=== PATIENT | male | born 1945 | race Caucasian/White ===

== ENCOUNTER 2023-03-11 12:41 | Outpatient (REF) | payer MEDICARE, SELFPAY ==
[2023-03-11 12:55] LABS: MANUAL DIFF FLAG NO
[2023-03-11 13:04] LABS: Basophils Absolute Auto 0.1 X10*3/uL (0.0-0.2); Basophils Percent Auto 1.1 % (0-2); Eosinophils Absolute Auto 0.2 X10*3/uL (0.0-0.4); Eosinophils Percent Auto 2.6 % (0-4); Hematocrit 47.5 % (42.0-52.0); Hemoglobin 15.5 g/dl (14.0-18.0); Imm Gran Abs Auto 0.02 X10*3/uL (0.00-0.03); Imm Gran Pct Auto 0.3 % (0.0-0.4); Lymphocytes Absolute Auto 1.5 X10*3/uL (1.2-4.9); Lymphocytes Percent Auto 24.1 % (20-40); Mean Corpuscular HGB Conc 32.6 g/dl (31.0-36.0); Mean Corpuscular Hemoglobin 31.2 pg (27.0-33.0); Mean Corpuscular Volume 95.6 fL (80.0-98.0); Mean Platelet Volume 10.2 fL (9.4-12.4); Monocytes Absolute Auto 0.7 X10*3/uL (0.1-1.2); Monocytes Percent Auto 11.2 % (2-11); Neutrophils Absolute Auto 3.8 x10*3/uL (2.0-8.3); Neutrophils Percent Auto 60.7 % (45-73); Platelet Count 249 X10*3/uL (160-400); Red Blood Count 4.97 X10*6/uL (4.60-5.80); Red Cell Distribution Width 14.2 % (11.0-16.0); White Blood Count 6.3 X10*3/uL (4.8-10.8)
[2023-03-11 13:16] LABS: Alanine Aminotransferase 19 U/L (0-40); Albumin Level 4.1 g/dL (3.5-5.0); Alkaline Phosphatase 57 U/L (39-117); Anion Gap 16 (12-20); Aspartate Amino Transferase 22 U/L (5-37); Bilirubin Total 0.6 mg/dL (0.0-1.0); Blood Urea Nitrogen 17 mg/dL (9-16); Calcium 9.2 mg/dL (8.4-10.2); Carbon Dioxide 23 mmol/L (22-29); Chloride 110 mmol/L (96-108); Cholesterol 221 mg/dL; Estimated Glomerular Filt Rate > 60; Glucose Fasting 96 mg/dL (60-99); HDL Cholesterol 53 mg/dL; LDL Cholesterol Calculated 144 mg/dl; Potassium 4.4 mmol/L (3.3-5.1); Sodium 145 mmol/L (135-145); Total Protein 6.6 g/dL (6.5-8.0); Triglycerides 120 mg/dL
[2023-03-11 13:22] LABS: Appearance Urine Clear; Color Urine Yellow; Glucose Urine UA Negative (Negative); Leukocyte Esterase Urine Negative (Negative); Nitrite Urine Negative (Negative); PH 5.5 (5.0-9.0); Specific Gravity - Urine 1.015 (1.005-1.025); Urine Blood Negative (Negative); Urine Ketones Negative (Negative); Urine Protein Negative (Neg-Trace)
[2023-03-11 13:25] LABS: Bacteria Urine None Seen (None Seen); Hyaline Casts Urine 0-2 /LPF (0-2); RBC Urine 0-2 /HPF (0-2); Squamous Epithelial Cell Urine 0-2 /HPF (0-2); WBC Urine 0-5 /HPF (0-5)
[2023-03-11 13:47] LABS: PSA,Total (Free>4and<10) 4.18 ng/mL (0.00-4.00)
[2023-03-12 10:04] LABS: Percent Free Prostate Spec Ag 27 % (calc) (>25); Prostate Specific Ag Total 3.7 ng/mL (< OR = 4.0)
== END 2023-03-11 12:42 | disposition home or self-care (01) ==
LOC: HO.LNP 12:41
PROVIDERS: Visit Provider Internal Medicine
DX: Z12.5 Encounter for screening for malignant neoplasm of prostate (principal); C82.00 Follicular lymphoma grade I, unspecified site
CPT/HCPCS: 80053; 80061; 81001; 84153; 84154; 85025

== ENCOUNTER 2023-03-14 11:14 | Outpatient (REF) | payer MEDICARE, SELFPAY ==
[2023-03-14 12:48] LABS: PSA,Total (Free>4and<10) 4.41 ng/mL (0.00-4.00)
[2023-03-18 10:59] LABS: Free Prostate Spec Ag 1.4 ng/mL; Percent Free Prostate Spec Ag 26 % (calc) (>25); Prostate Specific Ag Total 5.4 ng/mL (< OR = 4.0)
== END 2023-03-14 11:15 | disposition home or self-care (01) ==
LOC: HO.LNP 11:14
PROVIDERS: Visit Provider Internal Medicine
DX: Z12.5 Encounter for screening for malignant neoplasm of prostate (principal); R97.20 Elevated prostate specific antigen [PSA]
CPT/HCPCS: 84153; 84154

== ENCOUNTER 2023-05-06 12:07 | Outpatient (REF) | payer MEDICARE, SELFPAY ==
[2023-05-06 13:33] LABS: PSA,Total (Free>4and<10) 4.39 ng/mL (0.00-4.00)
[2023-05-08 10:24] LABS: Free Prostate Spec Ag 1.1 ng/mL; Percent Free Prostate Spec Ag 28 % (calc) (>25)
== END 2023-05-06 12:08 | disposition home or self-care (01) ==
LOC: HO.LNP 12:07
PROVIDERS: Visit Provider Internal Medicine
DX: R97.20 Elevated prostate specific antigen [PSA] (principal); Z12.5 Encounter for screening for malignant neoplasm of prostate
CPT/HCPCS: 84153; 84154

== ENCOUNTER 2023-07-15 14:43 | Outpatient (REF) | payer MEDICARE, SELFPAY ==
--- NOTE | ~2023-07-15 | XR_ITS ---
EXAMINATION: XR FOOT, LEFT CLINICAL INFORMATION: Calculi arthritis COMPARISON: None available. TECHNIQUE: AP, lateral, and oblique views of the left foot. FINDINGS: No acute visible fracture or dislocation. Multi joint arthritic changes. Plantar calcaneal heel spur. Narrowing of the first interphalangeal joint. Mild spurring the dorsal midfoot. Joint spaces and alignment are otherwise maintained. Soft tissues are unremarkable. Atherosclerotic calcifications are noted. XR/XR foot LT min 3V IMPRESSION: 1. No acute visible fracture or dislocation. 2. Multi joint arthritic changes with a plantar calcaneal heel spur.
[2023-07-15 16:35] LABS: PSA,Total (Free>4and<10) 4.26 ng/mL (0.00-4.00)
[2023-07-15 16:59] LABS: Uric Acid 6.6 mg/dL (3.4-7.0)
[2023-07-17 06:03] LABS: Free Prostate Spec Ag 0.8 ng/mL; Percent Free Prostate Spec Ag 23 % (calc) (>25); Prostate Specific Ag Total 3.5 ng/mL (< OR = 4.0)
== END 2023-07-15 14:44 | disposition home or self-care (01) ==
LOC: HO.XRAY 14:43
PROVIDERS: PCP Internal Medicine; Visit Provider Internal Medicine
DX: Z12.5 Encounter for screening for malignant neoplasm of prostate (principal); M10.9 Gout, unspecified; R97.20 Elevated prostate specific antigen [PSA]
CPT/HCPCS: 36415; 73630; 84153; 84154; 84550

== ENCOUNTER 2023-12-20 11:03 | Outpatient (REF) | payer MEDICARE, SELFPAY ==
[2023-12-20 11:52] LABS: Uric Acid 6.6 mg/dL (3.4-7.0)
[2023-12-20 12:19] LABS: PSA,Total (Free>4and<10) 4.25 ng/mL (0.00-4.00)
[2023-12-23 11:24] LABS: Percent Free Prostate Spec Ag 24 % (calc) (>25); Prostate Specific Ag Total 4.1 ng/mL (< OR = 4.0)
== END 2023-12-20 11:04 | disposition home or self-care (01) ==
LOC: HO.LNP 11:03
PROVIDERS: Visit Provider Internal Medicine
DX: Z12.5 Encounter for screening for malignant neoplasm of prostate (principal); M10.9 Gout, unspecified; R97.20 Elevated prostate specific antigen [PSA]
CPT/HCPCS: 84153; 84154; 84550

== ENCOUNTER 2024-03-09 11:14 | Outpatient (REF) | payer MEDICARE, SELFPAY ==
[2024-03-09 11:17] LABS: MANUAL DIFF FLAG NO
[2024-03-09 11:44] LABS: Basophils Absolute Auto 0.1 X10*3/uL (0.0-0.2); Basophils Percent Auto 1.3 % (0-2); Eosinophils Absolute Auto 0.2 X10*3/uL (0.0-0.4); Eosinophils Percent Auto 3.2 % (0-4); Hematocrit 41.2 % (42.0-52.0); Hemoglobin 13.3 g/dl (14.0-18.0); Imm Gran Abs Auto 0.02 X10*3/uL (0.00-0.03); Imm Gran Pct Auto 0.4 % (0.0-0.4); Lymphocytes Absolute Auto 1.3 X10*3/uL (1.2-4.9); Lymphocytes Percent Auto 26.7 % (20-40); Mean Corpuscular HGB Conc 32.3 g/dl (31.0-36.0); Mean Corpuscular Hemoglobin 30.6 pg (27.0-33.0); Mean Corpuscular Volume 94.9 fL (80.0-98.0); Mean Platelet Volume 10.4 fL (9.4-12.4); Monocytes Absolute Auto 0.7 X10*3/uL (0.1-1.2); Monocytes Percent Auto 14.1 % (2-11); Neutrophils Absolute Auto 2.6 x10*3/uL (2.0-8.3); Neutrophils Percent Auto 54.3 % (45-73); Platelet Count 178 X10*3/uL (160-400); Red Blood Count 4.34 X10*6/uL (4.60-5.80); Red Cell Distribution Width 14.6 % (11.0-16.0); White Blood Count 4.7 X10*3/uL (4.8-10.8)
[2024-03-09 12:19] LABS: Alanine Aminotransferase 15 U/L (0-40); Albumin Level 3.9 g/dL (3.5-5.0); Alkaline Phosphatase 72 U/L (39-117); Anion Gap 12 (12-20); Aspartate Amino Transferase 21 U/L (5-37); Bilirubin Total 0.4 mg/dL (0.0-1.0); Blood Urea Nitrogen 18 mg/dL (9-16); Carbon Dioxide 25 mmol/L (22-29); Chloride 108 mmol/L (96-108); Cholesterol 215 mg/dL (<200); Estimated Glomerular Filt Rate > 60; Glucose Fasting 98 mg/dL (60-99); HDL Cholesterol 55 mg/dL (>40); LDL Cholesterol Calculated 141 mg/dL (<100); Potassium 4.7 mmol/L (3.3-5.1); Sodium 140 mmol/L (135-145); Total Protein 6.3 g/dL (6.5-8.0); Triglycerides 99 mg/dL (<150)
[2024-03-09 12:21] LABS: PSA,Total (Free>4and<10) 4.99 ng/mL (0.00-4.00)
[2024-03-10 13:34] LABS: Free Prostate Spec Ag 1.2 ng/mL; Percent Free Prostate Spec Ag 26 % (calc) (>25); Prostate Specific Ag Total 4.7 ng/mL (< OR = 4.0)
== END 2024-03-09 11:15 | disposition home or self-care (01) ==
LOC: HO.LNP 11:14
PROVIDERS: Visit Provider Internal Medicine
DX: Z00.00 Encounter for general adult medical examination without abnormal findings (principal); C82.02 Follicular lymphoma grade I, intrathoracic lymph nodes; M10.9 Gout, unspecified; Z12.5 Encounter for screening for malignant neoplasm of prostate
CPT/HCPCS: 80053; 80061; 84153; 84154; 85025

== ENCOUNTER 2024-04-02 10:47 | Outpatient (REF) | payer MEDICARE, SELFPAY ==
[2024-04-02 11:10] LABS: Appearance Urine Clear; Color Urine Yellow; Glucose Urine UA Negative (Negative); Leukocyte Esterase Urine Negative (Negative); Nitrite Urine Negative (Negative); PH 6.5 (5.0-9.0); Urine Blood Negative (Negative); Urine Ketones Negative (Negative); Urine Protein Negative (Neg-Trace)
[2024-04-02 11:17] LABS: Bacteria Urine None Seen (None Seen); Hyaline Casts Urine 0-2 /LPF (0-2); RBC Urine 0-2 /HPF (0-2); Squamous Epithelial Cell Urine 0-2 /HPF (0-2); WBC Urine 0-5 /HPF (0-5)
== END 2024-04-02 10:48 | disposition home or self-care (01) ==
LOC: HO.LNP 10:47
PROVIDERS: Visit Provider Internal Medicine
DX: Z00.00 Encounter for general adult medical examination without abnormal findings (principal); I48.0 Paroxysmal atrial fibrillation; C82.02 Follicular lymphoma grade I, intrathoracic lymph nodes
CPT/HCPCS: 81001

== ENCOUNTER 2024-04-30 08:30 | Outpatient (REF) | payer MEDICARE, SELFPAY | END 2024-04-30 08:31 | disposition home or self-care (01) | LOC: HO.SH 08:30 | PROVIDERS: PCP Internal Medicine; Visit Provider Internal Medicine | DX: Z13.89 Encounter for screening for other disorder (principal) ==

== ENCOUNTER 2024-05-12 12:02 | Outpatient (REF) | payer MEDICARE, SELFPAY ==
[2024-05-12 12:32] LABS: Alanine Aminotransferase 14 U/L (0-40); Albumin Level 4.1 g/dL (3.5-5.0); Alkaline Phosphatase 63 U/L (39-117); Anion Gap 13 (12-20); Aspartate Amino Transferase 19 U/L (5-37); Bilirubin Direct 0.2 mg/dL (0.0-0.5); Bilirubin Total 0.7 mg/dL (0.0-1.0); Blood Urea Nitrogen 20 mg/dL (9-16); Calcium 9.5 mg/dL (8.4-10.2); Carbon Dioxide 26 mmol/L (22-29); Chloride 108 mmol/L (96-108); Estimated Glomerular Filt Rate > 60; Glucose Random 97 mg/dL (60-115); Potassium 4.7 mmol/L (3.3-5.1); Sodium 142 mmol/L (135-145); Total Protein 6.6 g/dL (6.5-8.0)
[2024-05-12 12:48] LABS: TSH reflex Free T4 1.84 uIU/mL (0.32-4.0)
[2024-05-12 12:54] LABS: Vitamin B12 424 pg/mL (200-900)
== END 2024-05-12 12:03 | disposition home or self-care (01) ==
LOC: HO.LNP 12:02
PROVIDERS: Visit Provider Internal Medicine
DX: R41.3 Other amnesia (principal)
CPT/HCPCS: 80048; 80076; 82607; 84443

== ENCOUNTER 2024-06-18 12:05 | Outpatient (REF) | payer MEDICARE, SELFPAY ==
--- NOTE | ~2024-06-18 | XR_ITS ---
EXAMINATION: XR ELBOW, LEFT CLINICAL INFORMATION: Elbow pain. Injury. COMPARISON: None available. TECHNIQUE: Four views of the left elbow. FINDINGS: Alignment is anatomic. There are subtle lucencies seen in the medial aspect of the proximal ulna, and possibly involving the articular surface. Undisplaced fracture in this region cannot be excluded. No additional acute fracture is seen. Joint spaces are maintained. No significant joint effusion is appreciated. Small enthesopathic-appearing spur at the olecranon process. XR/XR elbow LT min 3V IMPRESSION: Subtle lucencies in the medial aspect of the proximal ulna, adjacent to and possibly involving the articular surface. This raises the possibility of an undisplaced fracture. Clinically correlate. Further evaluation with CT scan as clinically indicated. Electronically signed by: Jason Rivas MD 06/18/2024 05:55 PM AMBER JOSHI
[2024-06-18 16:57] LABS: PSA,Total (Free>4and<10) 4.43 ng/mL (0.00-4.00)
[2024-06-19 12:58] LABS: Free Prostate Spec Ag 1.1 ng/mL; Percent Free Prostate Spec Ag 27 % (calc) (>25); Prostate Specific Ag Total 4.1 ng/mL (< OR = 4.0)
== END 2024-06-18 12:06 | disposition home or self-care (01) ==
LOC: HO.XRAY 12:05
PROVIDERS: PCP Internal Medicine; Visit Provider Internal Medicine
DX: Z12.5 Encounter for screening for malignant neoplasm of prostate (principal); R97.20 Elevated prostate specific antigen [PSA]; M25.522 Pain in left elbow
CPT/HCPCS: 36415; 73080; 84153; 84154

== ENCOUNTER 2024-07-15 07:19 | Outpatient (REF) | payer MEDICARE, SELFPAY ==
--- NOTE | ~2024-07-15 | CT_ITS ---
EXAMINATION: CT ELBOW WITHOUT CONTRAST, LEFT CLINICAL INFORMATION: Left elbow pain. COMPARISON: Left elbow radiograph dated 06/18/2024. TECHNIQUE: Contiguous axial CT images of the left elbow were obtained without contrast. Multiplanar reformats were provided and reviewed. This CT examination was performed using dose optimization techniques as appropriate, variously including the following: *Automated exposure control *Adjustment of mA and/or kV according to patient size (this includes techniques or standardized protocols for targeted exams where dose is matched to indication/reason for exam; i.e. extremities or head) *Use of iterative reconstruction technique DOSE: 124 mGy-cm. FINDINGS: No acute fracture or dislocation. Normal osseous alignment. Tiny marginal osteophytes without significant joint space narrowing. No osteochondral lesion. No concerning lytic or blastic osseous lesion. Tiny dorsal olecranon enthesophyte. No joint effusion. No soft tissue mass or fluid collection. Mild posterior subcutaneous stranding without an organized fluid collection. The visualized muscles and tendons are grossly intact, however, evaluation is limited on CT examination. CT/CT elbow LT wo IV con IMPRESSION: 1. No acute fracture or dislocation. 2. Mild posterior subcutaneous stranding without an organized fluid collection. 3. Tiny dorsal olecranon enthesophyte. Electronically signed by: Tavon Kelly MD 07/15/2024 10:32 AM AMBER
== END 2024-07-15 07:20 | disposition home or self-care (01) ==
LOC: HO.CT 07:19
PROVIDERS: PCP Internal Medicine; Visit Provider Internal Medicine
DX: M25.522 Pain in left elbow (principal)
CPT/HCPCS: 73200

== ENCOUNTER 2025-04-05 11:13 | Outpatient (REF) | payer MEDICARE, SELFPAY ==
--- OUTSIDE RECORDS SUMMARY | 2025-01-12 09:30 | XMS_ITS ---
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 Phone Papo Mike Primary Care Provider [phone] Allergies No Known Allergies REASON FOR VISIT 6 month AWV Medications Medication SIG (Take, Route, Frequency, Duration) Notes Start Date End Date Status Eliquis 5 MG 1 tablet Orally Twic e a day Active Fluorouracil 5 % 1 application Externally Twice a day Active Vitamin D 50 MCG (1999) 1 tablet Orally Once a day for 30 day(s) Not-Taking Atorvastatin Calcium 20 MG 1 tablet Orally Once a day Active traMADol HCl 50 MG 1 tablet as needed Orally Once or twice daily for 14 days 08/09/2023 Not-Taking Colchicine 0.6 MG 1 tablet Orally twic e a day for 14 days 07/18/2023 Not-Taking Allopurinol 100 MG 1 tablet Orally Once a day Active Indomethacin 50 MG 1 capsule with food or milk Orally Twice a day for 30 day(s) Not-Taking Social History Tobacco Use: Social History Observation Description Date Details (start date - stop date) Never Smoker NA - NA Tobacco Use/Smoking Question Answer Notes Patient is a nonsmoker Additional Findings: Tobacco Non-User Cu rrent non-smoker, currently using no form of tobacco Alcohol Screen Question Answer Notes Did you have a drink contain ing alcohol in the past year? Yes How often did you have a dri nk containing alcohol in the past year? 2 to 4 times a month (2 points) How many drinks did you have on a typical day when you were drinking in the past year? 1 or 2 drinks (0 point) How often did you have 6 or more drinks on one occasion in the past year? Never (0 point) Points 2 Interpretation Negative Vital Signs Blood pressure systolic 112 mm Hg 01/13/20 25 Blood pressure diastolic 64 mm Hg 025 Height 69 in 01/12/2025 Weight 180 lbs 01/12/2025 BMI 26.58 kg/m2 01/12/2025 weight is up 3 pounds since 06-18-24 Encounters Encounter Location Date Provider Diagnosis Papo Mike MD [address] [place] [id number] 01/12/2025 Papo Mike Encounter for general adult medical examination with abnormal findings Z00.01 Assessments Encounter Date Diagnosis (ICD Code) Assessment Notes Treatment Notes Treatment Clinical Notes Section Notes 01/12/2025 Encounter for general adult medical examination with abnormal findings (ICD-10 - Z00.01) Plan Of Treatment Medication Medication Name Sig Start Date Stop Date Notes Atorvastatin Calcium 20 MG 1 tablet Orally Once a day Next Appt Details Provider Name:Papo bahena, 04/06/2025 09:30:00 AM, [address] [place] [address], [address], [phone], Provider Name:Papo bahena, 01/14/2026 01:00:00 PM, [address] [place] [address], [place] [address], [place], [place], [phone], Progress Notes * SANTIAGO FISHMANDOB:1945 (79 yo M)Acc No.[id number]:01/12/2025 Progress Note Patient: SANTIAGO CHRISTY Provider: Robina Mike MD :1945 A ge:79 Y S ex:Male Date:01/12/2025 Address:[address] [place] [address] [id number] Subjective: * Chief Complaints: * 6 month AWV * HPI: D epression Screening: PHQ-9 L ittle interest or pleasure in doing things N ot at all, F eeling down, depressed, or hopeless N ot at all, T rouble falling or staying asleep, or sleeping too much N ot at all, F eeling tired or having little energy N ot at all, P oor appetite or overeating N ot at all, F eeling bad about yourself or that you are a failure, or have let yourself or your family down N ot at all, T rouble concentrating on things, such as reading the newspaper or watching television N ot at all, M oving or speaking so slowly that other people could have noticed; or the opposite, being so fidgety or restless that you have been moving around a lot more than usual N ot at all, T houghts that you would be better off or of hurting yourself in some way N ot at all, T otal Score 0 . A nnual Wellness Visit: c/o of A nnual Wellness Visit. Medical / Social History Reviewed T he following items were reviewed and updated during today's visit P ast Medical History, [place] of Care, Surgical/Hospitalization History, Current medications including OTC and supplements, Family History, Tobacco use, Alcohol use, Illicit drug use. H ome Safety T hrow rugs? N o, G rab bars? Y es, R aised toilet seats? N o, W orking smoke detectors? Y es, W orking carbon monoxide detectors? Y es. A ctivities of Daily Living (ADLs) D ifficulty bathing or showering? N o, D ifficulty dressing? N o, D ifficulty using the toilet? N o, D ifficulty getting in and out of bed? N o, D ifficulty walking? N o, R eceives help from another person with any of the above N o. E nd-of-Life Planning E nd of Life Planning N ot needed. A nswers for HPI/ROS submitted by the patient C hange in Weight N o, C hange in hearing N o. HRA filled out by the patient, reviewed by Provider and scanned. C ommunication Needs: Communication Needs D oes the patient have a hearing impairment N o, D oes the patient have a vision impairment? Y es, I f yes, what is the vision impairment? G lasses, D oes the patient have a cognition impairment? N o. F all Risk: History H ave you had any falls with injury in the past year? N o, H ave you had two or more falls in the past year? N o. S ANA Questions: SDOH Questions I n the past year have you been worried about losing housing? N o, I n the past year have you or any family members you live with been unable to get any of the following when it was really needed? Check all that apply: N one. S ymptom(s): patient is a 79 yo male here for 6 month follow up visit and AWV. * ROS: G eneral/Constitutional: Denies C hills. D enies F atigue. D enies F ever. D enies H eadache. E NT: Denies S ore throat. R espiratory: Denies C ough. D enies S hortness of breath at rest. D enies S hortness of breath with exertion. G astrointestinal: Denies D iarrhea. D enies N ausea. * Medical History: * Surgical History: * Hospitalization/Major Diagno stic Procedure: * Family History: F ather: 96 yrs. M other: 75 yrs. 3 sister(s) . 2 daughter(s) . .? Mother colon cancer 1 daughter. * Social History: T obacco Use: T obacco Use/Smoking P atpanda is a n onsmoker, A dditional Findings: Tobacco Non-User C urrent non-smoker, currently using no form of tobacco. D rugs/Alcohol: A lcohol Screen D id you have a drink containing alcohol in the past year? Y es, H ow often did you have a drink containing alcohol in the past year? 2 to 4 times a month (2 points), H ow many drinks did you have on a typical day when you were drinking in the past year? 1 or 2 drinks (0 point), H ow often did you have 6 or more drinks on one occasion in the past year? N ever (0 point), P oints 2 , I nterpretation N egative. M iscellaneous: E xercise: yes, bike, run or kayak hike. Home smoke detector use: yes. Housing: owning. Living with: spouse. Marital status: . Travel outside of the [place]: yes, P[place]. * Medications: T akingAtorvastatin Calcium 20 MG Tablet 1 tablet Orally Once a day Fluorouracil 5 % Cream 1 application Externally Twice a day Eliquis 5 MG Tablet 1 tablet Orally Twice a day Allopurinol 100 MG Tablet 1 tablet Orally Once a day Taking Atorvastatin Calcium 20 MG Tablet 1 tablet Orally Once a day Taking Fluorouracil 5 % Cream 1 application Externally Twice a day Taking Eliquis 5 MG Tablet 1 tablet Orally Twice a day Taking Allopurinol 100 MG Tablet 1 tablet Orally Once a day Not-Taking/PRNIndomethacin 50 MG Capsule 1 capsule with food or milk Orally Twice a day Colchicine 0.6 MG Tablet 1 tablet Orally twice a day traMADol HCl 50 MG Tablet 1 tablet as needed Orally Once or twice daily Vitamin D 50 MCG (1999) Tablet 1 tablet Orally Once a day Medication List reviewed and reconciled with the patientNot-Taking/PRN Indomethacin 50 MG Capsule 1 capsule with food or milk Orally Twice a day Not-Taking/PRN Colchicine 0.6 MG Tablet 1 tablet Orally twice a day Not-Taking/PRN traMADol HCl 50 MG Tablet 1 tablet as needed Orally Once or twice daily Not-Taking/PRN Vitamin D 50 MCG (1999) Tablet 1 tablet Orally Once a day Medication List reviewed and reconciled with the patient * Allergies: N .K.D.A.yes[Allergies Verified] Objective: * Vitals: H t: 69, Wt: 180, BMI:26.58, BP:112/64, Wt-k.65. weight is up 3 pounds since 06-18-24. * Examination: A WV: Balance . Hearing . EKG Not clinically necessary. Written plan C ompleted. G eneral Examination: GENERAL APPEARANCE: a lert, well hydrated, in no distress.? HEAD: n ormocephalic. EYES: e xtraocular movement full and smooth. HEART: n o murmurs, rubs, gallops, regular rate and rhythm.? LUNGS: n o wheezes, rales, rhonchi, good air movement, clear to auscultation bilaterally. Assessment: * Assessment: 1. E ncounter for general adult medical examination with abnormal findings - Z00. (Primary)? Plan: * Treatment: * Procedure Codes: G 0439 ANNUAL WELLNESS VST; PPS SUBSQT VST * Preventive Medicine: Counseling: C are goal follow-up plan: Isela resendez for abnormal BMI provided?Yes, A albert Normal BMI Follow-up D ietary management education, guidance, and counseling, Dietary needs education, Giving encouragement to exercise. E xercise . C ommunication to patient: Isela resendez for nutrition provided Y es, Isela resendez for physical activity provided Y es. S ocial: d iet: D iscussed the importance of eating a nutritious healthy food on a regular basis, e xercise: D iscussed the benefits of any exercise for overall health and well-being, a lcohol and drugs: D iscussed the dangers of excessive alcohol intake. SCREENING: C olonoscopy N ext screening is scheduled. M ammogram A nnual Mammogram recommended pt will self schedule. Immunizations: I nfluenza H ave you had a flu shot since the most recent April 12? Y es. C ovid p atient vaccincated. Screening/Special Tests: C olonoscopy . M ammogram . * * Sign off status: Completed true * Provider: Robina Mike MD Date: 0 01/12/2025 Generated for Teri sherman/Linn/eTransmitting on: 0 04/05/2025 12:37 PM EDT History and Physical Notes * HPI (History of Present Illness) Category Sub-Category Detail Notes Category Not es Symptom(s) patient is a 79 yo male here for 6 month follow up visit and AWV Depression Screening PHQ-9 Little inte rest or pleasure in doing things: Not at all Feeling down, depressed, or hopeless: No t at all Trouble falling or staying asleep, or sl eeping too much: Not at all Feeling tired or having little energy: N ot at all Poor appetite or overeating: Not at all Feeling bad about yourself o r that you are a failure, or have let yourself or your family down: Not at all Trouble concentrating on thi ngs, such as reading the newspaper or watching television: Not at all Moving or speaking so slowly that other people could have noticed; or the opposite, being so fidgety or restless that you have been moving around a lot more than usual: Not at all Thoughts that you would be b rj off or of hurting yourself in some way: Not at all Total Score: 0 SDOH Questions SDOH Questions In the past year have you been worried about losing housing?: No In the past year have you or any family members you live with been unable to get any of the following when it was really needed? Check all that apply:: None Fall Risk History Have you had any falls with injury i n the past year?: No Have you had two or more falls in the year?: No Communication Needs Communication Needs Does the patient have a hearing impairment: No Does the patient have a vision impairmen t?: Yes If yes, what is the vision impairment?: Glasses Does the patient have a cognition impair ment?: No Annual Wellness Visit of Annual Wellness Vis it HRA filled out by the patient, reviewed by Provider and scanned. Medical / Social History Reviewed The fo llowing items were reviewed and updated during today's visit: Past Medical History, [place] of Care, Surgical/Hospitalization History, Current medications including OTC and supplements, Family History, Tobacco use, Alcohol use, Illicit drug use Home Safety Throw rugs?: No Grab bars?: Yes Raised toilet seats?: No Working smoke detectors?: Yes Working carbon monoxide detectors?: Yes Activities of Daily Living (ADLs) Difficulty bat fermin or showering?: No Difficulty dressing?: No Difficulty using the toilet?: No Difficulty getting in and out of bed?: N o Difficulty walking?: No Receives help from another person with a ny of the above: No End-of-Life Planning End of Life Planning: Not n eeded Answers for HPI/ROS submitted by the patient Jayna dillard in Weight: No Change in hearing: No Examination Category Sub-Category Detail Notes Category Not es General Examination GENERAL APPEARANCE: alert, w ell hydrated, in no distress HEAD: normocephalic EYES: extraocular movement full and smooth HEART: no murmurs, rubs, ga llops, regular rate and rhythm LUNGS: no wheezes, rales, r honchi, good air movement, clear to auscultation bilaterally AWV Balance Romberg: Yes . Tandem walk: Yes . Walk and Turn: Yes . Rise from sit to stand: Yes . Hearing Whisper test: Pass . EKG Not clinically feliberto dominguez Written plan Completed
[2025-04-05 11:15] LABS: MANUAL DIFF FLAG NO
[2025-04-05 11:28] LABS: Hematocrit 43.2 % (42.0-52.0); Hemoglobin 14.2 g/dl (14.0-18.0); Imm Gran Abs Auto 0.02 X10*3/uL (0.00-0.03); Imm Gran Pct Auto 0.3 % (0.0-0.4); Lymphocytes Absolute Auto 1.6 X10*3/uL (1.2-4.9); Mean Corpuscular HGB Conc 32.9 g/dl (31.0-36.0); Mean Corpuscular Hemoglobin 31.3 pg (27.0-33.0); Mean Corpuscular Volume 95.4 fL (80.0-98.0); NRBC Abs Auto 0.000 X10*3/uL (0.0-0.012); NRBC Pct Auto 0.0 /100WBC (0.0-0.2); Platelet Count 201 X10*3/uL (160-400); Red Blood Count 4.53 X10*6/uL (4.60-5.80); White Blood Count 6.0 X10*3/uL (4.8-10.8)
[2025-04-05 11:45] LABS: Appearance Urine Clear; Glucose Urine UA Negative (Negative); PH 5.5 (5.0-9.0); Specific Gravity - Urine 1.015 (1.005-1.025)
[2025-04-05 12:03] LABS: PSA,Total (Free>4and<10) 5.14 ng/mL (0.00-4.00)
[2025-04-05 12:05] LABS: Alanine Aminotransferase 22 U/L (0-40); Albumin Level 4.2 g/dL (3.5-5.0); Alkaline Phosphatase 66 U/L (39-117); Anion Gap 12 (12-20); Aspartate Amino Transferase 30 U/L (5-37); Blood Urea Nitrogen 20 mg/dL (9-16); Calcium 9.0 mg/dL (8.4-10.2); Carbon Dioxide 26 mmol/L (22-29); Chloride 108 mmol/L (96-108); Cholesterol 140 mg/dL (<200); Estimated Glomerular Filt Rate > 60; HDL Cholesterol 51 mg/dL (>40); Potassium 4.3 mmol/L (3.3-5.1); Sodium 142 mmol/L (135-145); Total Protein 6.3 g/dL (6.5-8.0); Triglycerides 66 mg/dL (<150)
--- OUTSIDE RECORDS SUMMARY | 2025-04-05 12:37 | XMS_ITS | Encounter Summary ---
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 Not on ni e 12/06/2022 Are you concerned about learning? Not on file 12/06/2022 No 12/06/2022 No 12/06/2022 Digital Access Answer Date Recorded No 01/07/2023 No 01/07/2023 Reliable internet access at home? Not on file 01/07/2023 Device with a working camera? Not on file Sex and Gender Information Value Date Recorded Sex Assigned at Not on file Legal Sex Male 7:55 PM EST Gender Identity Not on file Sexual Orientation Not on file documented as of this encounter Plan of Treatment Upcoming Encounters Date Type Department Care Team (Late st Contact Info) Description 07/28/2025 11:00 AM EST Office Visit [facility] [address] [place] [address] [address] Floor, [address] [place] [address] Reece Adams MD [address] [place] [address] genesis 02/25/2026 1:00 PM EDT Office Visit [facility] [address] [place] [address] Oh Cardenas MD [address] [facility] [address] [place] [address] [email or web address] documented as of this encounter Visit Diagnoses Not on filedocumented in this encounter Care Teams Turf And Grounds Supervisor Relationship Specialty Start Date End Date Papo Miek MD [address] [place] [address] [address] [place] [address] PCP - General Internal Medicine 06/07/22 documented as of this encounter Additional Source Comments The information contained in this document represents components of the legal health record. It is not the complete legal health record.[facility]
[2025-04-06 13:09] LABS: Free Prostate Spec Ag 1.4 ng/mL; Percent Free Prostate Spec Ag 30 % (calc) (>25)
== END 2025-04-05 11:14 | disposition home or self-care (01) ==
LOC: HO.LNP 11:13
PROVIDERS: Visit Provider Internal Medicine
DX: Z13.6 Encounter for screening for cardiovascular disorders (principal); Z12.5 Encounter for screening for malignant neoplasm of prostate; C82.02 Follicular lymphoma grade I, intrathoracic lymph nodes
CPT/HCPCS: 80053; 80061; 81001; 84153; 84154; 85025